=== PATIENT | female | born 1950 | race Caucasian/White ===

== ENCOUNTER 2022-04-26 10:34 | Emergency (ER) | payer OTHER ==
[~2022-04-26] VITALS: Ht 160 cm; Wt 69.9 kg
[~2022-04-26 10:34] MED LIST: ALBU0.08 HHN; AML5T PO; BUPR1TAB11 PO; IBUP800T26 PO; LISI40TA11 PO; METO100T87 PO; OMEP20TA37 PO
[2022-04-26 11:47] LABS: Basophils # (auto) 0.1 10 ^3/uL (0-0.2); Basophils % (auto) 1.1 % (0.0-2.0); Eosinophils # (auto) 0.1 10 ^3/uL (0-0.8); Eosinophils % (auto) 1.1 % (0.0-7.0); Hemoglobin 11.4 g/dL (12.2-16.2); Lymphocytes # (auto) 1.2 10 ^3/uL (0.4-5.4); Lymphocytes % (auto) 20.9 % (10.0-50.0); Mean Corpuscular Hemoglobin 31.3 pg (28.0-32.0); Mean Corpuscular Hgb Conc. 33.6 g/dL (32.0-36.0); Mean Corpuscular Volume 93.2 fL (80.0-100.0); Monocytes # (auto) 0.7 10 ^3/uL (0-1.3); Neutrophils # (auto) 3.8 10 ^3/uL (1.6-8.6); Neutrophils % (auto) 64.9 % (37.0-80.0); Red Blood Cells 3.64 10^6/uL (4.0-5.20); Red Cell Distribution Width 13.4 % (11.8-14.3); White Blood Cell 5.9 10^3/uL (4.4-10.8)
[2022-04-26] MEDS ORDERED: SODIUM CHLORIDE 0.9% 1,000 ML IV ONE (12:00)
[2022-04-26 13:10] LABS: Albumin 3.7 g/dL (3.4-5.0); Calcium 8.9 mg/dL (8.5-10.1); Magnesium 1.9 mg/dL (1.6-2.6); Potassium 3.8 mmol/L (3.5-5.1)
[2022-04-26 13:13] LABS: BUN/Creatinine Ratio 15.9; Bilirubin, Total 0.5 mg/dL (0.2-1.0); Total Protein 7.3 g/dL (6.4-8.2)
[2022-04-26 13:26] VITALS: BP 126/63
[2022-04-26 13:33] LABS: Urine Bacteria FEW /hpf (None Seen); Urine Blood Negative /uL (Negative); Urine Hyaline Cast FEW /lpf (0 - 2); Urine Specific Gravity 1.008 (1.001-1.035); Urine WBC 28 /hpf (0 - 5)
[2022-04-26] MEDS ORDERED: NITR-87 PO (13:52)
== END 2022-04-26 14:10 | disposition home or self-care (01) ==
LOC: ER 10:34 → EDBD 10:34 → ER 14:03
DX: R55 Syncope and collapse (principal); T67.5XXA Heat exhaustion, unspecified, initial encounter; I10 Essential (primary) hypertension; J44.9 Chronic obstructive pulmonary disease, unspecified; Z87.891 Personal history of nicotine dependence; Z90.710 Acquired absence of both cervix and uterus; Z79.1 Long term (current) use of non-steroidal anti-inflammatories (NSAID); Z79.899 Other long term (current) drug therapy; Z88.8 Allergy status to other drugs, medicaments and biological substances; X58.XXXA Exposure to other specified factors, initial encounter; Y93.89 Activity, other specified; Y92.89 Other specified places as the place of occurrence of the external cause; Y99.8 Other external cause status
CPT/HCPCS: 36415; 70450; 71045; 80053; 81001; 83735; 84484; 85025; 93005; 96360; 99285; J7030

== ENCOUNTER 2024-03-19 08:02 | Inpatient (IN) | payer OTHER ==
[~2024-03-19] VITALS: Ht 154.9 cm; Wt 65.3 kg
[~2024-03-19 08:02] MED LIST changes: +BUPR-133 PO; -BUPR1TAB11 PO; +IBUP-1455 PO; -IBUP800T26 PO; -LISI40TA11 PO; +LISI40TA16 PO; +NITR-87 PO
[2024-03-19 08:31] VITALS: PULSE 95; RESP 20; O2SAT 100
[2024-03-19 09:58] LABS: Basophils # (auto) 0.1 10 ^3/uL (0-0.2); Basophils % (auto) 1.3 % (0.0-2.0); Eosinophils # (auto) 0 10 ^3/uL (0-0.8); Eosinophils % (auto) 0.1 % (0.0-7.0); Hematocrit 39.8 % (36.0-46.0); Hemoglobin 13.1 g/dL (12.2-16.2); Lymphocytes % (auto) 9.8 % (10.0-50.0); Mean Corpuscular Hemoglobin 31.1 pg (28.0-32.0); Mean Corpuscular Hgb Conc. 32.9 g/dL (32.0-36.0); Mean Corpuscular Volume 94.6 fL (80.0-100.0); Monocytes # (auto) 0.9 10 ^3/uL (0-1.3); Monocytes % (auto) 9.2 % (0.0-12.0); Neutrophils # (auto) 8.1 10 ^3/uL (1.6-8.6); Neutrophils % (auto) 79.6 % (37.0-80.0); Nucleated Red Blood Cells % 0.1 %; Red Cell Distribution Width 15.3 % (11.8-14.3); White Blood Cell 10.2 10^3/uL (4.4-10.8)
[2024-03-19] MEDS: SODIUM CHLORIDE 0.9% 1,000 ML IV ONE (10:04)
[2024-03-19] MEDS: MORPHINE SULFATE INJ 2 MG/ml SYRG IV ONE ×2 (10:04→12:23)
[2024-03-19] MEDS: cloNIDine HCL 0.1 MG TAB PO ONE (10:04)
[2024-03-19] MEDS: ONDANSETRON HCL 4 MG/2 ML VIAL IV ONE (10:05)
[2024-03-19 10:08] LABS: Chloride 99 mmol/L (98-107); Potassium 3.4 mmol/L (3.5-5.1); Sodium 135 mmol/L (136-145)
[2024-03-19 10:09] LABS: Anion Gap 15 (5-15); Carbon Dioxide 21 mmol/L (20-30)
[2024-03-19 10:10] LABS: Calcium 10.5 mg/dL (8.5-10.1)
[2024-03-19 10:14] LABS: BUN/Creatinine Ratio 11.8 (10.0-20.0); Blood Urea Nitrogen 8 mg/dL (9-23); Glucose 93 mg/dL (74-106)
[2024-03-19] MEDS: SODIUM CHLORIDE 0.9% 1,000 ML IV SCH (12:19)
[2024-03-19] MEDS: POTASSIUM EFFERVESENT TAB 25 MEQ PO ONE (12:21)
[2024-03-19] MEDS: MORPHINE SULFATE INJ 2 MG/ml SYRG IV PRN (16:47)
[2024-03-19 19:20] VITALS: BP 111/52; PULSE 67; RESP 14; TEMP 97.7; O2SAT 94
[2024-03-19 20:00] VITALS: BP 95/45; PULSE 69; RESP 18; TEMP 98.3; O2SAT 94
[2024-03-19 21:00] VITALS: BP 88/49; PULSE 69; RESP 18; TEMP 98.3; O2SAT 94
[2024-03-19] MEDS: BUPROPION HCL 150 MG PO SCH (21:29)
[2024-03-19] MEDS ORDERED: SERT25TA28 PO (21:32)
[2024-03-20] VITALS (8 sets, daily range): BP systolic 106–143; BP diastolic 55–77; PULSE 64–94; RESP 16–18; TEMP 98.1–100.1; O2SAT 90–98
[2024-03-20 06:06] LABS: Basophils # (auto) 0 10 ^3/uL (0-0.2); Basophils % (auto) 0.7 % (0.0-2.0); Eosinophils # (auto) 0.1 10 ^3/uL (0-0.8); Eosinophils % (auto) 1.6 % (0.0-7.0); Hematocrit 30.2 % (36.0-46.0); Lymphocytes # (auto) 1.4 10 ^3/uL (0.4-5.4); Mean Corpuscular Hemoglobin 31.7 pg (28.0-32.0); Mean Corpuscular Hgb Conc. 33.1 g/dL (32.0-36.0); Mean Corpuscular Volume 95.9 fL (80.0-100.0); Monocytes # (auto) 0.9 10 ^3/uL (0-1.3); Monocytes % (auto) 15.7 % (0.0-12.0); Neutrophils # (auto) 3.5 10 ^3/uL (1.6-8.6); Nucleated Red Blood Cells % 0.1 %; Red Blood Cells 3.15 10^6/uL (4.0-5.20); Red Cell Distribution Width 14.8 % (11.8-14.3)
[2024-03-20 06:30] LABS: Alanine Aminotransferase 40 U/L (7-40); Albumin 3.4 g/dL (3.2-4.8); Alkaline Phosphatase 75 U/L (46-116); Anion Gap 7 (5-15); Aspartate Aminotransferase 36 U/L (13-40); BUN/Creatinine Ratio 13.5 (10.0-20.0); Bilirubin, Total 0.7 mg/dL (0.2-1.0); Blood Urea Nitrogen 7 mg/dL (9-23); Calcium 8.8 mg/dL (8.5-10.1); Carbon Dioxide 25 mmol/L (20-30); Chloride 101 mmol/L (98-107); Glucose 86 mg/dL (74-106); Potassium 3.6 mmol/L (3.5-5.1); Sodium 133 mmol/L (136-145); Total Protein 5.8 g/dL (5.7-8.2)
[2024-03-20] MEDS: PANTOPRAZOLE 40 MG TAB PO SCH (09:59)
[2024-03-20] MEDS: LISINOPRIL 20 MG TAB PO SCH (09:59)
[2024-03-20] MEDS ORDERED: PATIENTS OWN MEDICATION (Lisinopril 1 TAB) PO SCH (10:00)
[2024-03-20] MEDS: amLODIPine BESYLATE 5 MG TAB PO SCH (10:00)
[2024-03-20] MEDS: METOPROLOL SUCCINATE XL 50 MG TAB PO SCH (10:00)
[2024-03-20] MEDS ORDERED: OMEPRAZOLE 40 MG PO SCH (10:00)
[2024-03-20] MEDS ORDERED: PATIENTS OWN MEDICATION (Metoprolol Succinate (Toprol Xl) 1 TAB) PO SCH (10:00)
[2024-03-20] MEDS: MORPHINE SULFATE 4 MG/ML SYR/VIAL IV PRN (13:08)
[2024-03-20] MEDS: HYDROcodone-ACET 10/325MG TAB PO PRN (17:27)
[2024-03-21 05:24] VITALS: BP 115/58; PULSE 84; RESP 18; TEMP 99.1; O2SAT 91
[2024-03-21 06:05] LABS: Basophils # (auto) 0 10 ^3/uL (0-0.2); Basophils % (auto) 0.5 % (0.0-2.0); Eosinophils # (auto) 0 10 ^3/uL (0-0.8); Eosinophils % (auto) 0.2 % (0.0-7.0); Hematocrit 29.7 % (36.0-46.0); Hemoglobin 9.9 g/dL (12.2-16.2); Lymphocytes % (auto) 13.1 % (10.0-50.0); Mean Corpuscular Hemoglobin 32.3 pg (28.0-32.0); Mean Corpuscular Hgb Conc. 33.5 g/dL (32.0-36.0); Mean Corpuscular Volume 96.3 fL (80.0-100.0); Monocytes # (auto) 1.4 10 ^3/uL (0-1.3); Monocytes % (auto) 17.9 % (0.0-12.0); Neutrophils # (auto) 5.5 10 ^3/uL (1.6-8.6); Neutrophils % (auto) 68.3 % (37.0-80.0); Red Blood Cells 3.08 10^6/uL (4.0-5.20)
[2024-03-21 06:11] LABS: Alanine Aminotransferase 24 U/L (7-40); Albumin 3.2 g/dL (3.2-4.8); Alkaline Phosphatase 66 U/L (46-116); Anion Gap 8 (5-15); Aspartate Aminotransferase 21 U/L (13-40); Bilirubin, Total 0.5 mg/dL (0.2-1.0); Calcium 8.6 mg/dL (8.5-10.1); Carbon Dioxide 23 mmol/L (20-30); Chloride 102 mmol/L (98-107); Glucose 93 mg/dL (74-106); Magnesium 1.4 mg/dL (1.6-2.6); Potassium 3.7 mmol/L (3.5-5.1); Sodium 133 mmol/L (136-145)
[2024-03-21 06:12] LABS: Total Protein 5.6 g/dL (5.7-8.2)
[2024-03-21 06:26] LABS: BUN/Creatinine Ratio 10.4 (10.0-20.0); Blood Urea Nitrogen < 5 mg/dL (9-23)
[2024-03-21 08:30] VITALS: BP 151/73; PULSE 110; RESP 20; TEMP 99.1
[2024-03-21 09:00] VITALS: BP 151/73; PULSE 110; RESP 20; TEMP 99.1; O2SAT 95
[2024-03-21] MEDS ORDERED: FLUT1AER3 IN (10:58)
[2024-03-21] MEDS: SERTRALINE HCL 50 MG TAB PO ONE (12:26)
[2024-03-21 12:45] VITALS: BP 153/77; PULSE 82; RESP 20; TEMP 100; O2SAT 94
[2024-03-21 16:08] LABS: Urine Bacteria None Seen /hpf (None Seen)
[2024-03-21 16:15] LABS: Urine Blood Negative /uL (Negative); Urine Clarity Clear (Clear); Urine Color Colorless (Yellow); Urine Protein, UAD Negative (Negative); Urine Specific Gravity 1.004 (1.001-1.035); Urine Urobilinogen Normal (Negative); Urine WBC 100 /hpf (0 - 5)
[2024-03-21 16:25] VITALS: BP 121/54; PULSE 78; RESP 18; TEMP 99.2; O2SAT 90
[2024-03-21 21:00] VITALS: BP 129/59; PULSE 81; RESP 18; TEMP 99.8; O2SAT 91
[2024-03-22] VITALS (9 sets, daily range): BP systolic 120–146; BP diastolic 52–74; PULSE 70–96; RESP 18–20; TEMP 97.9–99.9; O2SAT 91–98
[2024-03-22 07:23] LABS: Basophils # (auto) 0.1 10 ^3/uL (0-0.2); Basophils % (auto) 0.8 % (0.0-2.0); Eosinophils # (auto) 0 10 ^3/uL (0-0.8); Eosinophils % (auto) 0.6 % (0.0-7.0); Hematocrit 30.2 % (36.0-46.0); Hemoglobin 9.8 g/dL (12.2-16.2); Lymphocytes # (auto) 1.1 10 ^3/uL (0.4-5.4); Lymphocytes % (auto) 14.8 % (10.0-50.0); Mean Corpuscular Hemoglobin 31.1 pg (28.0-32.0); Mean Corpuscular Hgb Conc. 32.5 g/dL (32.0-36.0); Mean Corpuscular Volume 95.8 fL (80.0-100.0); Monocytes # (auto) 1.2 10 ^3/uL (0-1.3); Monocytes % (auto) 16.2 % (0.0-12.0); Neutrophils # (auto) 5.2 10 ^3/uL (1.6-8.6); Neutrophils % (auto) 67.6 % (37.0-80.0); Red Blood Cells 3.16 10^6/uL (4.0-5.20); Red Cell Distribution Width 14.5 % (11.8-14.3); White Blood Cell 7.7 10^3/uL (4.4-10.8)
[2024-03-22 07:29] LABS: Anion Gap 8 (5-15); Carbon Dioxide 22 mmol/L (20-30); Chloride 101 mmol/L (98-107); Potassium 3.3 mmol/L (3.5-5.1); Sodium 131 mmol/L (136-145)
[2024-03-22 07:30] LABS: Calcium 8.7 mg/dL (8.5-10.1)
[2024-03-22 07:35] LABS: Glucose 94 mg/dL (74-106); Magnesium 1.5 mg/dL (1.6-2.6)
[2024-03-22 07:38] LABS: BUN/Creatinine Ratio 12.5 (10.0-20.0); Blood Urea Nitrogen < 5 mg/dL (9-23)
[2024-03-22] MEDS: SERTRALINE HCL 50 MG TAB PO SCH (09:38)
[2024-03-22 10:14] LABS: % Iron Saturation 3.4 % (15-50)
[2024-03-22 11:53] LABS: Ferritin 101.9 ng/mL (10-291)
[2024-03-22] MEDS: UMECLIDINIUM IN SCH (14:44)
[2024-03-22] MEDS: VILANTEROL IN SCH (14:44)
[2024-03-22] MEDS: FLUTICASONE FUROATE IN SCH (14:44)
[2024-03-22] MEDS: POTASSIUM EFFERVESENT TAB 25 MEQ PO ONE (16:22)
[2024-03-22] MEDS: MAGNESIUM SULFATE 1GM/100ML 100 ML IV SCH (16:23)
[2024-03-23] VITALS (8 sets, daily range): BP systolic 126–145; BP diastolic 55–67; PULSE 68–91; RESP 16–20; TEMP 98–98.8; O2SAT 90–96
[2024-03-23 06:20] LABS: Basophils # (auto) 0.1 10 ^3/uL (0-0.2); Basophils % (auto) 0.8 % (0.0-2.0); Eosinophils # (auto) 0.1 10 ^3/uL (0-0.8); Eosinophils % (auto) 0.9 % (0.0-7.0); Hematocrit 28.7 % (36.0-46.0); Hemoglobin 9.7 g/dL (12.2-16.2); Lymphocytes # (auto) 1.4 10 ^3/uL (0.4-5.4); Lymphocytes % (auto) 19.9 % (10.0-50.0); Mean Corpuscular Hemoglobin 32.2 pg (28.0-32.0); Mean Corpuscular Hgb Conc. 33.8 g/dL (32.0-36.0); Mean Corpuscular Volume 95.3 fL (80.0-100.0); Monocytes # (auto) 1.1 10 ^3/uL (0-1.3); Monocytes % (auto) 15.9 % (0.0-12.0); Neutrophils # (auto) 4.2 10 ^3/uL (1.6-8.6); Neutrophils % (auto) 62.5 % (37.0-80.0); Red Blood Cells 3.01 10^6/uL (4.0-5.20); Red Cell Distribution Width 14.2 % (11.8-14.3); White Blood Cell 6.8 10^3/uL (4.4-10.8)
[2024-03-23 06:23] LABS: Anion Gap 7 (5-15); Carbon Dioxide 23 mmol/L (20-30); Chloride 102 mmol/L (98-107); Potassium 3.3 mmol/L (3.5-5.1); Sodium 132 mmol/L (136-145)
[2024-03-23 06:25] LABS: Calcium 8.3 mg/dL (8.7-10.4)
[2024-03-23 06:29] LABS: Glucose 90 mg/dL (74-106)
[2024-03-23 06:30] LABS: BUN/Creatinine Ratio 13.9 (10.0-20.0); Blood Urea Nitrogen < 5 mg/dL (9-23)
[2024-03-23] MEDS: POTASSIUM EFFERVESENT TAB 25 MEQ PO ONE (11:39)
[2024-03-23] MEDS: MAGNESIUM SULFATE 1GM/100ML 100 ML IV SCH (11:39)
[2024-03-24] VITALS (7 sets, daily range): BP systolic 123–148; BP diastolic 58–75; PULSE 74–84; RESP 17–20; TEMP 98.4–98.9; O2SAT 91–95
[2024-03-24 06:18] LABS: Anion Gap 5 (5-15); Carbon Dioxide 25 mmol/L (20-30); Chloride 103 mmol/L (98-107); Potassium 3.5 mmol/L (3.5-5.1); Sodium 133 mmol/L (136-145)
[2024-03-24 06:19] LABS: Calcium 8.4 mg/dL (8.7-10.4)
[2024-03-24 06:24] LABS: Glucose 99 mg/dL (74-106)
[2024-03-24 06:25] LABS: Magnesium 1.8 mg/dL (1.6-2.6)
[2024-03-24 06:27] LABS: BUN/Creatinine Ratio 13.9 (10.0-20.0); Blood Urea Nitrogen < 5 mg/dL (9-23)
[2024-03-24 06:29] LABS: Basophils # (auto) 0.1 10 ^3/uL (0-0.2); Basophils % (auto) 0.8 % (0.0-2.0); Eosinophils # (auto) 0.1 10 ^3/uL (0-0.8); Eosinophils % (auto) 1.9 % (0.0-7.0); Hematocrit 27.7 % (36.0-46.0); Hemoglobin 9.3 g/dL (12.2-16.2); Lymphocytes # (auto) 0.9 10 ^3/uL (0.4-5.4); Lymphocytes % (auto) 13.5 % (10.0-50.0); Mean Corpuscular Hgb Conc. 33.5 g/dL (32.0-36.0); Mean Corpuscular Volume 95.6 fL (80.0-100.0); Monocytes # (auto) 1.1 10 ^3/uL (0-1.3); Monocytes % (auto) 16.5 % (0.0-12.0); Neutrophils # (auto) 4.4 10 ^3/uL (1.6-8.6); Neutrophils % (auto) 67.3 % (37.0-80.0); Red Cell Distribution Width 13.9 % (11.8-14.3); White Blood Cell 6.5 10^3/uL (4.4-10.8)
[2024-03-24 08:06] LABS: Immunoglobulin A 375 mg/dL (64-422); Immunoglobulin G, Serum 720 mg/dL (586-1602); Immunoglobulin M 311 mg/dL (26-217)
[2024-03-24] MEDS: DOCUSATE SOD 100 MG CAP PO PRN (11:03)
[2024-03-24 12:06] LABS: Kappa Lite Chain Free Serum 47.8 mg/L (3.3-19.4)
[2024-03-24 14:06] LABS: Albumin 2.4 g/dL (2.9-4.4); Alpha-1-Globulin 0.5 g/dL (0.0-0.4); Alpha-2-Globulin 0.8 g/dL (0.4-1.0); Gamma Globulin 0.9 g/dL (0.4-1.8); Globulin Total 3.1 g/dL (2.2-3.9); Protein Total Serum 5.5 g/dL (6.0-8.5)
[2024-03-24 16:48] LABS: Urine Bacteria FEW /hpf (None Seen); Urine Blood Negative /uL (Negative); Urine Clarity Clear (Clear); Urine Color Colorless (Yellow); Urine Protein, UAD Negative (Negative); Urine Specific Gravity 1.005 (1.001-1.035); Urine Urobilinogen 2 mg/dL (Negative); Urine WBC 6 /hpf (0 - 5); Urine pH 7.5 (5.0-9.0)
[2024-03-24] MEDS: NITROFURANTOIN 100 mg CAP PO SCH (21:22)
[2024-03-24] MEDS: ONDANSETRON HCL 4 MG/2 ML VIAL IV PRN (22:29)
[2024-03-25 01:02] VITALS: BP 137/66; PULSE 83; RESP 17; TEMP 98.4; O2SAT 98
[2024-03-25 05:02] VITALS: BP 122/68; PULSE 75; RESP 18; TEMP 98.1; O2SAT 98
[2024-03-25 08:00] VITALS: PULSE 78; RESP 18; O2SAT 96
[2024-03-25 08:25] VITALS: BP 130/70; PULSE 82; RESP 18; TEMP 98.7; O2SAT 95
[2024-03-25 12:41] VITALS: BP 129/67; PULSE 65; RESP 20; TEMP 97.4; O2SAT 94
[2024-03-25] MEDS ORDERED: HYDR1TAB97 PO (13:54)
[2024-03-25] MEDS ORDERED: NITR-87 PO (13:54)
[2024-03-25 15:35] VITALS: BP 122/68; PULSE 75
== END 2024-03-25 16:27 | disposition home or self-care (01) | DRG 155 ==
LOC: ER 08:02 → OVERFLOW 12:22 → WEST WING 18:31
PROVIDERS: ADMIT Nurse Practitioner Family; ATTEND Internal Medicine
DX: S02.2XXA Fracture of nasal bones, initial encounter for closed fracture (principal); D62 Acute posthemorrhagic anemia; N39.0 Urinary tract infection, site not specified; E87.6 Hypokalemia; E83.52 Hypercalcemia; S05.11XA Contusion of eyeball and orbital tissues, right eye, initial encounter; S70.11XA Contusion of right thigh, initial encounter; J44.9 Chronic obstructive pulmonary disease, unspecified; I10 Essential (primary) hypertension; E83.42 Hypomagnesemia; M54.2 Cervicalgia; M17.11 Unilateral primary osteoarthritis, right knee; M25.461 Effusion, right knee; M89.9 Disorder of bone, unspecified; Z80.7 Family history of other malignant neoplasms of lymphoid, hematopoietic and related tissues; Z82.49 Family history of ischemic heart disease and other diseases of the circulatory system; Z82.5 Family history of asthma and other chronic lower respiratory diseases; Z83.3 Family history of diabetes mellitus; Z90.710 Acquired absence of both cervix and uterus; Z87.891 Personal history of nicotine dependence; W18.2XXA Fall in (into) shower or empty bathtub, initial encounter; Y93.89 Activity, other specified; Y92.091 Bathroom in other non-institutional residence as the place of occurrence of the external cause; Y99.8 Other external cause status
CPT/HCPCS: 36415; 70450; 70486; 72125; 73502; 73560; 73700; 76705; 80048; 80053; 81001; 82550; 82607; 82728; 82784; 83540; 83550; 83615; 83735; 83883; 84155; 84165; 84484; 85025; 85045; 86334; 86880; 87086; 97110; 97116; 97163; 97530; G0378; J2405

== ENCOUNTER → 2024-05-05 | Outpatient (CLI) | payer OTHER ==
[~2024-05-05] VITALS: Ht 157.5 cm; Wt 65.8 kg
[~2024-05-05] MED LIST changes: -BUPR-133 PO; +FLUT1AER3 IN; +HYDR1TAB97 PO; +SERT25TA28 PO; +fentaNYL CITRATE 100 MCG/2 ML VL ONE
[2024-05-05] MEDS: LIDOCAINE 2%HCL (LOCAL ANESTH.) INJ 10ml MDV ONE (09:30)
== END | disposition home or self-care (01) ==
LOC: XYW 08:57
PROVIDERS: ATTEND Internal Medicine
DX: D47.2 Monoclonal gammopathy (principal)
CPT/HCPCS: 72192; J2001

== ENCOUNTER 2024-12-24 09:16 | Emergency (ER) | payer OTHER ==
[~2024-12-24] VITALS: Ht 154.9 cm; Wt 64.1 kg
[~2024-12-24 09:16] MED LIST changes: -fentaNYL CITRATE 100 MCG/2 ML VL ONE
--- NOTE | 2024-12-24 10:34 | DVH ---
CLINICAL INDICATION: right shoulder pain with reduced ROM TECHNIQUE: 2 XY R CLAVICLE COMPLETE XRAY Comparison: None FINDINGS/IMPRESSION: : There is no evidence of acute fracture or dislocation. Soft tissues are unremarkable.
[2024-12-24 10:48] VITALS: BP 153/93; PULSE 79; RESP 17; TEMP 98.7; O2SAT 96
--- NOTE | 2024-12-24 11:49 | ED.PDOC ---
History of Present Illness HPI Comments 74 y/o F presents with c/o right-shoulder pain, today. Patient endorses on falling and injuring her right shoulder on 11/18/24 and being diagnosed a posterior dislocation via outpatient imaging studies she received 2x days ago. She comments on no losing consciousness, having prior symptoms, or sustaining any additional injuries then. Patient denies having any numbness, tingling, weakness, or other associated symptoms or modifiers at this time. Chief Complaint: Upper Extremity Time Seen by MD: 09:40 Primary Care Provider: MARCI Reviewed Notes: Nurses Notes, Medications, Allergies Allergies: Coded Allergies: Nitrofurantoin (Verified Allergy, Unknown, 12/24/24) Home Meds Active Scripts Hydrocodone-Acetaminophen (Hydrocodone/Acetaminophen 5-325 mg) 1 Tab Tab, 1 TAB PO TIDP PRN for 7 Days, #21 TAB Prov:ADAM GRANT MD 03/25/24 Nitrofurantoin Monohydrate Mac (Macrobid) 100 Mg Cap, 100 MG PO BID for 7 Days, #14 CAP Prov:ADAM GRANT MD 03/25/24 Reported Medications Htestfvrzok-Fjuskzxfwrnj-Uxfxi (Trelegy Ellipta 100-62.5-25 Mcg/INH) 1 Aer Aer, 1 AER IN DAILY, AER 03/21/24 Sertraline Hcl (Sertraline Hcl) 25 Mg Tab, 1 TAB PO DAILY 03/19/24 Ibuprofen Micronized (Ibuprofen) 800 Mg Tab, 800 MG PO Q6HP PRN for MILD PAIN, TAB 09/13/16 Lisinopril (Lisinopril) 40 Mg Tab, 1 TAB PO DAILY, #30 TAB 5 Refills 09/13/16 Amlodipine Besylate (NORVASC TABLET) 5 Mg Tb, 1 TAB PO DAILY, #30 TAB 5 Refills 09/13/16 Omeprazole (Sm Omeprazole) 20 Mg Tab, 40 MG PO DAILY, TAB 09/13/16 Metoprolol Succinate (Toprol Xl) 100 Mg Tab, 1 TAB PO DAILY, #30 TAB 5 Refills 09/13/16 Albuterol Sulfate (Albuterol Sulfate) 0.083 % Neb, 2.5 % HHN Q4HP PRN for SHORTNESS OF BREATH 09/13/16 Information Source: Patient Mode of Arrival: Ambulatory Severity: Moderate Timing: Days Duration: Since onset Prehospital treatment: Other (see HPI) Past Medical History PAST MEDICAL HISTORY: COPD, HTN Surgical History: Hysterectomy 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 History Family History Family History: No family hx of Cancer, No family hx of DM, No family hx of Heart shantel Social History Smoker: Quit Greater Than 1 Year Alcohol: Occasionally Drugs: Denies Drug Use Lives In: Home Musculoskeletal: reports: others (right-shoulder pain ) All Other Systems: Reviewed and Negative (negative unless otherwise stated above or in HPI) Physical Exam General Appearance: No Apparent Distress, Normal HEENT: Normal ENT Inspection, Pharynx Normal, TMs Normal Neck: Full Range of Motion, Non-Tender, Normal, Normal Inspection Respiratory: Chest Non-Tender, Lungs Clear, No Accessory Muscle Use, No Respiratory Distress, Normal Breath Sounds Cardiovascular: No Edema, No JVD, No Murmur, No Gallop, Normal Peripheral Pulses, Regular Rate/Rhythm Breast Exam: Deferred Gastrointestinal: No Organomegaly, Non Tender, No Pulsatile Mass, Normal Bowel Sounds, Soft Genitalia: Deferred Pelvic: Deferred Rectal: Deferred Extremities: No calf tenderness, Normal capillary refill, No pedal edema, Other (Limited ROM of right upper extremity, unable to abduct above 45 degrees but is able to touch the opposite shoulder) Musculoskeletal : Apperance: Normal Neurologic: Alert, community health nurse supervisor II-XII nml as Tested, No Motor Deficits, Normal Affect, Normal Mood, No Sensory Deficits Cerebellar Function: Normal Reflexes: Normal Skin: Dry, Normal Color, Warm Lymphatic: No Adenopathy Was a procedure done? Was a procedure done?: No Differential Dx Considerations may include: dislocation, fracture, contusions X-Ray, Labs, Meds, VS Vital Signs Date Time Temp Pulse Resp B/P (MAP) Pulse Ox O2 Delivery O2 Flow Rate FiO2 12/24/24 10:48 98.7 79 17 153/93 (113) 96 98.7 12/24/24 10:48 79 17 96 Room Air 12/24/24 09:28 97.8 78 18 165/73 (103) 95 [facility] [id number] [place] [id number] Ph: [phone] DIAGNOSTIC IMAGING Diagnostic Imaging Report : [id number] Signed PATIENT: GORDY SOLANO ACCT: [id number] UNIT: [id number] : 1950 LOC: ER ROOM / BED: / AGE / SEX: 74 / F ADM STATUS: REG ER SERVICE [id number] ORDERING PHYSICIAN: JAYME SIMPSON MD PROCEDURE(s): RCLAV - R CLAVICLE COMPLETE XRAY REASON: right shoulder pain with reduced ROM ORDER NUMBER(s): [id number], ACCESSION NUMBER(s): [id number] CLINICAL INDICATION: right shoulder pain with reduced ROM TECHNIQUE: 2 XY R CLAVICLE COMPLETE XRAY Comparison: None FINDINGS/IMPRESSION: : There is no evidence of acute fracture or dislocation. Soft tissues are unremarkable. ATED BY: CRISTHIAN BROOKS MD DICTATED DATE/TIME: 12/24/24 103 SIGNED BY: CRISTHIAN BROOKS MD SIGNED DATE/TIME: 12/24/24 103 CC: Time of 1ST Reevaluation: 10:10 Reevaluation 1ST: Unchanged Patient Education/Counseling: Diagnosis, Treatment Family Education/Counseling: No Family Present Critical Care Note Critical Care Time?: No Stability Stability form required: No Heart Score Heart Score: Heart Score Response (Comments) Value History N/A 0 EKG N/A 0 Age N/A 0 Risk Factors N/A 0 Troponin N/A 0 Total 0 I personally scribed for JAYME SIMPSON MD ([email or web address]) on 12/24/24 at 11:49. Electronically submitted by Shar Mistry ([email or web address]). JAYME SIMPSON MD Dec 24, 2024 11:49
--- NOTE | 2025-01-04 12:34 | DVH ---
CLINICAL INDICATION: right shoulder pain with reduced ROM TECHNIQUE: XY R SHOULDER 2+ VIEW XRAY Comparison: None FINDINGS/IMPRESSION: : There is no evidence of acute fracture or dislocation. Soft tissues are unremarkable.
== END 2024-12-24 12:44 | disposition left against medical advice (07) ==
LOC: ER 09:16
DX: M25.511 Pain in right shoulder (principal); I10 Essential (primary) hypertension; J44.9 Chronic obstructive pulmonary disease, unspecified; Z87.891 Personal history of nicotine dependence; Z90.710 Acquired absence of both cervix and uterus; Z79.899 Other long term (current) drug therapy; Z88.1 Allergy status to other antibiotic agents; W18.39XA Other fall on same level, initial encounter; Y93.89 Activity, other specified; Y92.89 Other specified places as the place of occurrence of the external cause; Y99.8 Other external cause status
CPT/HCPCS: 73000; 73030

== ENCOUNTER 2025-04-28 08:24 | Inpatient (IN) | payer OTHER ==
[~2025-04-28] VITALS: Ht 157.5 cm; Wt 75.3 kg
[2025-04-28] VITALS (8 sets, daily range): BP systolic 89–107; BP diastolic 50–62; PULSE 72–86; RESP 16–19; TEMP 98–99; O2SAT 94–100
[~2025-04-28 08:24] MED LIST changes: -AML5T PO; +AMLO1TAB21 PO; -HYDR1TAB97 PO; -NITR-87 PO; -OMEP20TA37 PO
[2025-04-28] MEDS ORDERED: PROPOFOL 10 MG/ML 20 ML IV ONE (09:09)
[2025-04-28] MEDS ORDERED: DexAMETHasone SOD PHOS 10MG/1ML VIAL INJ ONE (09:09)
[2025-04-28] MEDS ORDERED: KETAMINE 50mg/ML 1ml syringe ONE (09:09)
[2025-04-28] MEDS ORDERED: GLYCOPYRROLATE 0.2 MG/ML 1ML VIAL ONE (09:09)
[2025-04-28] MEDS ORDERED: KETOROLAC TROMETH 30 MG/ML 1ML VIAL ONE (09:09)
[2025-04-28] MEDS ORDERED: ONDANSETRON HCL 4 MG/2 ML VIAL ONE (09:09)
[2025-04-28] MEDS ORDERED: LIDOCAINE 1% INJ PF 5ML AMP ONE (09:09)
[2025-04-28] MEDS: GABAPENTIN 300 MG CAP PO ONE (10:00)
[2025-04-28] MEDS: ACETAMINOPHEN IV 1000 MG/100ML (10MG/ML) IV ONE (10:00)
[2025-04-28] MEDS: CELECOXIB 100 MG CAP PO ONE (10:00)
[2025-04-28] MEDS ORDERED: hydrALAZINE HCL 20 MG/ML VL ONE (11:49)
[2025-04-28] MEDS ORDERED: LABETALOL HCL 5 MG/ML ML 20ML VIAL IV ONE (11:55)
--- NOTE | 2025-04-28 12:07 | DVHOP2 ---
Operative Report - 2 Report Details Date: 04/28/25 Preop Diagnosis: Right knee degenerative arthritis Postop Diagnosis: Same Surgeon: Marcellus Wong MD Bull Gang Worker: Sherri MOE Anesthesiologist: Sergio Burton CRNA Anesthesia: Regional Drains: Anjelica closed wound suction Implant: Aman collins knee size six femur PS, size five tibial base plate, size 13 polyethylene, size 26 patella Consent: The patient was informed of the risks and benefits of the procedure. These include but are not limited to complications of anesthesia, postoperative infection, incomplete relief of symptoms, recurrence of symptoms, damage to blood vessels, nerves and tendons, deep venous thrombosis, pulmonary embolism and possible need for repeat surgery in the future. Complications: None Estimated Blood Loss: 75 cc Fluids: See anesthesia record Findings: Valgus deformity, osteophytes, denuded cartilage with eburnated bone Indications for Surgery: Right knee degenerative arthritis with severe pain and functional impairment despite adequate non operative management Name of Procedure Performed Right total knee arthroplasty Procedure Details Procedure Details: The patient was brought to the operating room and placed on the table in the supine position after being given spinal anesthetic with adequate analgesia obtained. Surgical timeout was performed verifying patient, laterality and procedure Preop patient received IV cefepime IV Ancef and IV tranexamic acid. Tourniquet was applied to the lower extremity. Extremity was elevated, exsanguinated Esmarch, and tourniquet inflated. Lower extremity was prepped and draped in sterile fashion. Midline incision was made followed by medial arthrotomy. I exposed the anterior medial and lateral tibial plateau and the anterior distal femur. Bovie and aqua mantis were used for hemostasis. I excised the anterior meniscal tissue with Bovie. I excised a portion of the fat pad with Bovie. The patella was everted and the knee flexed. I drilled the distal femur and suctioned the hole to reduce the risk of fat emboli. I inserted intramedullary guide with 6 degree valgus setting. I pinned the distal femoral cutting block anteriorly. Intramedullary jimi was removed. Distal femoral cut was made which appeared shallow so I removed the oblique screw moved the block back one set of holes and re inserted the oblique screw and recut the distal femur and the block was removed. I brought my attention to the tibia setting up the external cutting jig for the tibia paying attention to slope, rotation and varus valgus alignment. I set the depth and pinned the block. I used the external alignment jimi to aid in checking alignment. Bone cut was made and bone removed releasing soft tissue attachments with Bovie. Cutting block removed. I then checked the extension gap and deemed adequate and removed the pins. I flexed the knee and applied the femoral sizing guide to the femur. I checked the size and external rotation setting at 90 degrees to [place] line and checking the epicondylar axis. I drilled the holes then removed the sizing guide and pin. I then tapped on the 4 in 1 cutting block and checked with the ramila wing anteriorly to make sure that I would not notch then pinned the block. Cuts were made and the block and pins were removed. Bone was removed with curved osteotome. I used a rongeur to remove any remaining osteophytes at the femur and tibia. I then used a lamina medicaid eligibility specialist to open up the back alternating between the medial and lateral side. Any remaining meniscal tissue was excised with scalpel. I used curved osteotome, curette and rongeur to remove any posterior osteophytes. I prophylactically coagulated with aqua mantis. I then tapped on the template for the box cut and pinned it. Box cut was made and bone removed. Template and pin removed. I then tapped on the femoral trial. I then brought my attention back to the tibia sizing it. I used the external alignment jimi to make sure that rotation and alignment were good. I made a Bovie jun at the tibial tray jun identifying rotation for later use. I tried various tibial polytrials. [I then brought my attention to the patella. I sequentially dissected soft tissue with Bovie. I checked the thickness with caliper. I set the appropriate depth of cut on the cutting guide. I attached the cutting guide made my cut. I then sized the patella and made my drill holes. I then placed the patella trial with appropriate depth based on overall precut thickness. ] The patella tracked nicely without thumb pressure. I removed the trials. I pinned the tray and used the reamer and keel punch. The implants were brought into the field while bone preparation was started. I used both normal saline irrigation and the CarboJet to prepare the bone. Once cement was ready I applied cement to the tibial implant and tibial bone tapped it on and removed excess cement in usual fashion. In similar fashion I tapped on the femoral implant. I inserted the trial polyethylene and brought the knee into 30 degrees flexion. [I then applied the patella implant in similar fashion holding pressure with the pressurization device.] I irrigated with biosurge irrigant. Once cement cured, I checked stability and range of motion as well as patella tracking. tourniquet was released and hemostasis maintained with aqua mantis. I inserted the polyethylene and again checked stability. I used a 2 grams of vancomycin half of which was placed deep and half superficial. I repaired the extensor mechanism with the knee in flexion with #1 Ethibond interrupted [id number]-acdef. Deep subcutaneous tissue was closed with 0 Vicryl. Superficial subcutaneous tissue was closed with 2-0 vicryl interrupted. Skin was closed with ronel. I then applied the [anjelica closed wound suction]. Patient tolerated the procedure well and was brought to recovery room in stable condition. Condition Stable Disposition Still a Patient MARCELLUS WONG MD Apr 28, 2025 12:07
[2025-04-28] MEDS ORDERED: ACETAMINOPHEN 325 MG TAB PO PRN (12:15)
[2025-04-28] MEDS ORDERED: NALOXONE HCL 0.4 MG/ML VIAL IV PRN (12:30)
[2025-04-28] MEDS ORDERED: ONDANSETRON HCL 4 MG/2 ML VIAL IV PRN (12:30)
[2025-04-28] MEDS ORDERED: FLUMAZENIL 0.1 MG/ML INJ 10ML MDV IV PRN (12:30)
[2025-04-28] MEDS ORDERED: HYDROmorphone HCL 2 MG/ML VL/or syr IV PRN (12:30)
[2025-04-28] MEDS ORDERED: hydrALAZINE HCL 20 MG/ML VL IV PRN (12:30)
[2025-04-28] MEDS ORDERED: fentaNYL CITRATE 100 MCG/2 ML VL IV PRN (12:30)
[2025-04-28] MEDS ORDERED: ePHEDrine SULFATE 50 MG/ML AMP IV PRN (12:30)
--- NOTE | 2025-04-28 13:29 | DVH ---
EXAM: XY R KNEE 2V XRAY INDICATION: postop TECHNIQUE: 2 views of the right knee COMPARISON: XY R KNEE 2V XRAY on DOS: 03/20/24 FINDINGS: Expected postoperative changes. Right total knee arthroplasty. No radiographic evidence of an acute o sseous abnormality. There is no acute fracture, osseous malalignment, or aggressive focal osseous les ion. There is no radiographically apparent joint space narrowing. No joint effusion. IMPRESSION: 1. Expected postoperative changes.
[2025-04-28] MEDS: D5W/LACTATED RINGERS 1,000 ML IV SCH (13:32)
[2025-04-28] MEDS: ceFAZolin 2 GM/D5W50ml 50 ML IV SCH (13:41)
[2025-04-28] MEDS: oxyCODONE HCL 5MG TAB PO ONE (13:45)
[2025-04-28] MEDS: ACETAMINOPHEN 325 MG TAB PO SCH (17:39)
[2025-04-28] MEDS: KETOROLAC TROMETH 30 MG/ML 1ML VIAL IV SCH (17:40)
[2025-04-28] MEDS: METOPROLOL SUCCINATE XL 50 MG TAB PO SCH (17:44)
[2025-04-28] MEDS: amLODIPine BESYLATE 5 MG TAB PO SCH (17:44)
[2025-04-28] MEDS: ALBUTEROL SULF 2.5 MG/0.5ML(0.5%) NEB SOLN NEB PRN (20:30)
[2025-04-28] MEDS: PREGABALIN 25 MG CAP PO SCH (21:13)
[2025-04-28] MEDS: oxyCODONE HCL 5MG TAB PO PRN ×2 (21:15→23:50)
[2025-04-29] VITALS (9 sets, daily range): BP systolic 109–149; BP diastolic 50–65; PULSE 68–89; RESP 16–19; TEMP 97.4–98.4; O2SAT 93–96
[2025-04-29 05:36] LABS: Basophils # (auto) 0 10 ^3/uL (0-0.2); Eosinophils # (auto) 0 10 ^3/uL (0-0.8); Hematocrit 29.7 % (36.0-46.0); Hemoglobin 10.1 g/dL (12.2-16.2); Lymphocytes # (auto) 0.6 10 ^3/uL (0.4-5.4); Lymphocytes % (auto) 6.6 % (10.0-50.0); Mean Corpuscular Volume 94.3 fL (80.0-100.0); Monocytes % (auto) 10.9 % (0.0-12.0); Neutrophils # (auto) 7.7 10 ^3/uL (1.6-8.6); Neutrophils % (auto) 82.5 % (37.0-80.0); Platelet Count (auto) 160 10^3/uL (140-450); Red Blood Cells 3.14 10^6/uL (4.0-5.20); Red Cell Distribution Width 14.4 % (11.8-14.3); White Blood Cell 9.4 10^3/uL (4.4-10.8)
[2025-04-29 05:54] LABS: Chloride 100 mmol/L (98-107); Potassium 4.3 mmol/L (3.5-5.1)
[2025-04-29 05:55] LABS: Anion Gap 8 (5-15); Calcium 8.8 mg/dL (8.7-10.4); Carbon Dioxide 23 mmol/L (20-31)
[2025-04-29 05:57] LABS: Sodium 131 mmol/L (136-145)
[2025-04-29 06:00] LABS: BUN/Creatinine Ratio 18.1 (10.0-20.0); Blood Urea Nitrogen 13 mg/dL (9-23)
[2025-04-29 06:02] LABS: Glucose 213 mg/dL (74-106)
[2025-04-29] MEDS: ceFAZolin 2 GM/D5W50ml 50 ML IV ONE (07:28)
[2025-04-29] MEDS: CEFEPIME 1GM/ 50ML 50 ML IV ONE (07:30)
[2025-04-29] MEDS: TRANEXAMIC ACID 20 ML ONE (07:30)
[2025-04-29] MEDS: VANCOMYCIN HCL 1000 MG VL ONE (07:30)
[2025-04-29] MEDS: SERTRALINE HCL 50 MG TAB PO SCH (10:12)
[2025-04-29] MEDS: LISINOPRIL 20 MG TAB PO SCH (10:12)
[2025-04-29] MEDS: ASPirin 81 mg TAB PO SCH (10:13)
--- NOTE | 2025-04-29 15:38 | DVHPN2 ---
Progress Note - Dictate Date Seen: Apr 29, 2025 Medical Necessity Reason Pt with a Central, PICC or Fol: No Subjective Patient was lying comfortably in bed during my evaluation and reports some postoperative knee pain that is somewhat improved with the help of pain medication. Patient reports that she tried to get up and walk with the help of physical therapy and her walker and was able to get to her door and back to her bed albeit with some pain and has not tried getting out of bed since walking with physical therapy due to the pain. Patient was otherwise feeling well denying any other complaints or concerns during my evaluation. vital signs Vital Sign Date Time Temp Pulse Resp B/P (MAP) Pulse Ox O2 Delivery O2 Flow Rate FiO2 04/29/25 12:34 98.4 68 16 133/53 (79) 94 98.4 04/29/25 08:00 Room Air* 0 21 Total Intake and Output 04/28/25 04/28/25 04/29/25 15:00 23:00 07:00 Intake Total 100 ml 1200 ml 900 ml Balance 100 ml 1200 ml 900 ml medications Current Medications Medications Dose Ordered Sig/Selina Route Start Time Stop Time Status Last Admin Dose Admin Albuterol 2.5 mg Q4HP PRN NEB 04/28/25 12:30 04/28/25 20:30 2.5 MG Amlodipine Besylate 7.5 mg QPM PO 04/28/25 18:00 Patient Own Medication 1 aer DAILY IN 04/29/25 10:00 Lisinopril 40 mg DAILY PO 04/29/25 10:00 04/29/25 10:12 40 MG Metoprolol Succinate 100 mg QPM PO 04/28/25 18:00 Sertraline HCl 25 mg DAILY PO 04/29/25 10:00 04/29/25 10:12 25 MG Dextrose/Lactated Ringer's 1,000 ml @ 100 mls/hr Q10H IV 04/28/25 12:15 04/29/25 10:13 100 MLS/HR Acetaminophen 650 mg Q4HP PRN PO 04/28/25 12:15 Acetaminophen 650 mg Q6HR PO 04/28/25 18:00 04/29/25 12:10 650 MG Ketorolac Tromethamine 15 mg Q6HR IV 04/28/25 18:00 05/03/25 17:59 04/29/25 12:10 15 MG Pregabalin 50 mg BID PO 04/28/25 22:00 04/29/25 10:11 50 MG Oxycodone HCl 5 mg Q4HP PRN PO 04/28/25 12:15 04/28/25 23:50 5 MG Oxycodone HCl 10 mg Q4HP PRN PO 04/28/25 12:15 04/29/25 04:03 10 MG Aspirin 81 mg BID PO 04/29/25 10:00 04/29/25 10:13 81 MG objective A&O x4 in no acute distress Knee range of motion grossly limited with pain on movement Haylee dressing clean, dry, intact, and maintaining suction No distal edema or calf tenderness to palpation Neurovascularly intact with cap refill less than 2 seconds laboratory and microbiology Laboratory Tests 04/29/25 04:44 Test 04/29/25 04:44 Range/Units Serum Glucose 213 H 74-106 mg/dL Assessment/Plan Continue current management as well as pain control and physical therapy and advised the patient to remain weight-bearing as tolerated with the assistance of a walker. We will reconvene with the patient tomorrow morning for re-evaluation and possible discharge home. Patient understood and agreed. Plan discussed with: Patient JUSTEN JJ Apr 29, 2025 15:38
[2025-04-30 01:00] VITALS: BP 140/60; PULSE 74; RESP 16; TEMP 97.5; O2SAT 96
[2025-04-30 05:00] VITALS: BP 134/56; PULSE 87; RESP 16; TEMP 98; O2SAT 93
[2025-04-30 09:00] VITALS: BP 147/59; PULSE 83; RESP 18; TEMP 98.3; O2SAT 94
[2025-04-30 13:00] VITALS: BP 128/57; PULSE 68; RESP 18; TEMP 98; O2SAT 95
[2025-04-30 17:22] VITALS: BP 139/67; PULSE 83; RESP 20; TEMP 98.2; O2SAT 93
[2025-04-30 21:00] VITALS: BP 112/69; PULSE 75; RESP 18; TEMP 98.1; O2SAT 95
[2025-05-01 01:00] VITALS: BP 136/75; PULSE 70; RESP 17; TEMP 97.3; O2SAT 95
[2025-05-01 05:00] VITALS: BP 150/74; PULSE 65; RESP 18; TEMP 97.4; O2SAT 96
[2025-05-01] MEDS: CELECOXIB 100 MG CAP ONE (08:21)
[2025-05-01] MEDS: ACETAMINOPHEN IV 100 ML IV ONE (08:21)
[2025-05-01] MEDS: GABAPENTIN 300 MG CAP ONE (08:21)
[2025-05-01 09:00] VITALS: BP 138/68; PULSE 68; RESP 16; TEMP 98.2; O2SAT 93
[2025-05-01 13:00] VITALS: BP 146/54; PULSE 70; RESP 16; TEMP 98.3; O2SAT 94
--- NOTE | 2025-05-01 13:47 | DVHPN2 ---
Progress Note - Dictate Date Seen: May 01, 2025 Medical Necessity Reason Pt with a Central, PICC or Fol: No Subjective Patient was lying comfortably in bed during my evaluation and reports some postoperative knee pain that is improved with the help of pain medication. Patient reports that she was able to get up and walk with the help of physical therapy and her walker and was able to get down the amador around the nurses station and back to her room. Patient was otherwise feeling well denying any other complaints or concerns during my evaluation and is ready to go home. vital signs Vital Sign Date Time Temp Pulse Resp B/P (MAP) Pulse Ox O2 Delivery O2 Flow Rate FiO2 05/01/25 13:00 98.3 70 16 146/54 (84) 94 98.3 05/01/25 07:45 Room Air* 0 21 Total Intake and Output 04/30/25 04/30/25 05/01/25 15:00 23:00 07:00 Intake Total 1950 ml 1200 ml Balance 1950 ml 1200 ml medications Current Medications Medications Dose Ordered Sig/Selina Route Start Time Stop Time Status Last Admin Dose Admin Amlodipine Besylate 7.5 mg QPM PO 04/28/25 18:00 04/30/25 18:29 7.5 MG Patient Own Medication 1 aer DAILY IN 04/29/25 10:00 Lisinopril 40 mg DAILY PO 04/29/25 10:00 05/01/25 11:13 40 MG Metoprolol Succinate 100 mg QPM PO 04/28/25 18:00 04/30/25 18:28 100 MG Sertraline HCl 25 mg DAILY PO 04/29/25 10:00 05/01/25 11:14 25 MG Dextrose/Lactated Ringer's 1,000 ml @ 100 mls/hr Q10H IV 04/28/25 12:15 04/30/25 00:37 100 MLS/HR Acetaminophen 650 mg Q4HP PRN PO 04/28/25 12:15 Acetaminophen 650 mg Q6HR PO 04/28/25 18:00 05/01/25 12:50 650 MG Ketorolac Tromethamine 15 mg Q6HR IV 04/28/25 18:00 05/03/25 17:59 05/01/25 12:50 15 MG Pregabalin 50 mg BID PO 04/28/25 22:00 05/01/25 11:13 50 MG Oxycodone HCl 5 mg Q4HP PRN PO 04/28/25 12:15 05/01/25 11:14 5 MG Oxycodone HCl 10 mg Q4HP PRN PO 04/28/25 12:15 04/29/25 04:03 10 MG Aspirin 81 mg BID PO 04/29/25 10:00 05/01/25 11:13 81 MG objective A&O x4 in no acute distress Knee range of motion grossly limited with pain on movement Haylee dressing clean, dry, intact, and maintaining suction No distal edema or calf tenderness to palpation Neurovascularly intact with cap refill less than 2 seconds laboratory and microbiology Laboratory Tests 04/29/25 04:44 Test 04/29/25 04:44 Range/Units Serum Glucose 213 H 74-106 mg/dL Assessment/Plan Patient to be discharged home and advised to remain weight-bearing as tolerated with the assistance of a walker. I instructed the patient to maintain her dressings clean, dry, intact, and maintaining suction and to follow up with our office in 10-14 days for her 1st postoperative evaluation. I also advised the patient to call our office if she has any further questions or concerns. Rx sent via our outpatient EMR system. She understood and agreed. Plan discussed with: Patient JUSTEN JJ May 01, 2025 13:47
--- NOTE | 2025-05-01 13:49 | DVHDS2 ---
Discharge Summary Date of Admission Apr 28, 2025 at 12:08 Date of Discharge: May 01, 2025 Labs/Diagnostic Data: Laboratory Results Test 04/29/25 04:44 White Blood Count 9.4 10^3/uL (4.4-10.8) Red Blood Count 3.14 10^6/uL (4.0-5.20) Hemoglobin 10.1 g/dL (12.2-16.2) Hematocrit 29.7 % (36.0-46.0) Mean Corpuscular Volume 94.3 fL (80.0-100.0) Mean Corpuscular Hemoglobin 32.0 pg (28.0-32.0) Mean Corpuscular Hemoglobin Concent 34.0 g/dL (32.0-36.0) Red Cell Distribution Width 14.4 % (11.8-14.3) Platelet Count 160 10^3/uL (140-450) Mean Platelet Volume 9.7 fL (6.9-10.8) Neutrophils (%) (Auto) 82.5 % (37.0-80.0) Lymphocytes (%) (Auto) 6.6 % (10.0-50.0) Monocytes (%) (Auto) 10.9 % (0.0-12.0) Eosinophils (%) (Auto) 0.0 % (0.0-7.0) Basophils (%) (Auto) 0.0 % (0.0-2.0) Neutrophils # (Auto) 7.7 10 ^3/uL (1.6-8.6) Lymphocytes # (Auto) 0.6 10 ^3/uL (0.4-5.4) Monocytes # (Auto) 1.0 10 ^3/uL (0-1.3) Eosinophils # (Auto) 0 10 ^3/uL (0-0.8) Basophils # (Auto) 0 10 ^3/uL (0-0.2) Nucleated Red Blood Cells 0.0 % Sodium Level 131 mmol/L (136-145) Potassium Level 4.3 mmol/L (3.5-5.1) Chloride Level 100 mmol/L (98-107) Carbon Dioxide Level 23 mmol/L (20-31) Anion Gap 8 (5-15) Blood Urea Nitrogen 13 mg/dL (9-23) Creatinine 0.72 mg/dL (0.550-1.02) Glomerular Filtration Rate Calc 87 mL/min (>90) BUN/Creatinine Ratio 18.1 (10.0-20.0) Serum Glucose 213 mg/dL (74-106) Calcium Level 8.8 mg/dL (8.7-10.4) Other Laboratory Tests 04/29/25 04:44 Brief Hx & Hospital Course: Patient was brought to the hospital on Saturday to undergo a right total knee arthroplasty. She tolerated the procedure well and was kept overnight for postoperative observation. She has remained medically stable denying any overnight events and reported significant postoperative knee pain that was being minimally improved with the help of pain medication limiting her physical activity the 1st two days after surgery but reports that today feels a lot more stable and the pain has been improving significantly since yesterday afternoon. Patient was able to get up and walk with the help of physical therapy and her walker and was able to get down the amador around the nurses station and back to her bed. Patient was otherwise feeling well denying any other complaints or concerns during my evaluation and is ready to go home. Condition at Discharge: Stable Final Diagnosis/Problems List Same Discharge Disposition: Home Discharge Instruct/Medications Diet: Regular Activity: See Comment Activity comment: Weight-bearing as tolerated with the assistance of a walker Follow Up/Referral: I instructed the patient to follow up with our office in 10-14 days for her 1st postoperative evaluation Medications: Rx sent via our outpatient EMR system Discharge Statement: "Patient was advised to return to the ER or call 911 if any headaches, dizziness, shortness of breath, chest pain, abdominal pain, bleeding, fevers, or worsening of medical condition. Patient was counseled about treatment plan, medications, possible side effects, patientverbalized understanding. All questions were answered to the best of my ability. This discharge took greater then 30 minutes in planning, reviewing documentation, counseling the patient, and discussing with other team members." ASSESSMENT ASSESSMENT Assessment Same JUSTEN JJ May 01, 2025 13:49
[2025-05-01 15:25] VITALS: BP 138/68; PULSE 83; TEMP 36.8
[2025-05-01 16:57] VITALS: BP 143/64; PULSE 70; RESP 14; TEMP 98.4; O2SAT 93
== END 2025-05-01 17:55 | disposition home or self-care (01) | DRG 470 ==
LOC: SUR 08:24 → OVERFLOW 12:08 → WEST WING 13:29
PROVIDERS: ADMIT Orthopaedic Surgery; ATTEND Orthopaedic Surgery
PROC: 0SRC0J9 Replacement of Right Knee Joint with Synthetic Substitute, Cemented, Open Approach (ICD-10-PCS; principal; 2025-04-28 10:03)
DX: M17.11 Unilateral primary osteoarthritis, right knee (principal); I10 Essential (primary) hypertension; J43.9 Emphysema, unspecified; M21.00 Valgus deformity, not elsewhere classified, unspecified site; M25.761 Osteophyte, right knee; K21.9 Gastro-esophageal reflux disease without esophagitis; G89.29 Other chronic pain; Z88.8 Allergy status to other drugs, medicaments and biological substances
CPT/HCPCS: 36415; 73560; 80048; 85025; 86850; 86900; 86901; 97110; 97116; 97163; G0378; J0131; J1100; J1885; J2405; J2704